=== PATIENT | female | born 1970 | race Caucasian/White ===

== ENCOUNTER 2018-11-19 14:39 | Emergency (ER) | payer BC, OTHER ==
[~2018-11-19] VITALS: Ht 172.7 cm; Wt 60.3 kg
--- NOTE | 2018-11-19 14:47 | NUR ---
PT BIBRA FROM A NAIL SALON S/P SYNCOPAL EPISODE. PER REPORT, PT WAS HYPOTENSIVE. PT IS AWAKE VERBALLY RESPONSIVE W/ GOOD BLOOD SUGAR. PLACED ON MONITOR. VSS. AWAITING MD DEVRIES.
--- NOTE | 2018-11-19 14:54 | NUR ---
ARELI LUZ AT BEDSIDE FOR EVAL.
--- NOTE | 2018-11-19 15:05 | NUR ---
STUDENT SERVICES COUNSELOR AT BEDSIDE FOR BLOOD DRAW.
[2018-11-19 15:09] LABS: BASOPHILS # (AUTO) 0.1 /CMM (0.0-0.2); BASOPHILS % (AUTO) 1.1 % (0.0-2.0); EOSINOPHILS % (AUTO) 4.4 % (0.0-6.0); HEMATOCRIT 38 % (33-45); HEMOGLOBIN 13.1 g/dL (11.5-14.8); LYMPHOCYTES # (AUTO) 1.7 /CMM (0.8-4.8); LYMPHOCYTES % (AUTO) 33.1 % (20.0-44.0); MEAN CORPUSCULAR HGB CONC 34 g/dl (31.0-36.0); MEAN CORPUSCULAR VOLUME 99 fL (82-100); MONOCYTES # (AUTO) 0.3 /CMM (0.1-1.30); MONOCYTES % (AUTO) 6.4 % (2.0-12.0); NEUTROPHILS # (AUTO) 2.8 /CMM (1.8-8.9); PLATELET COUNT (AUTO) 181 /CMM (150-450); RED BLOOD CELL COUNT(AUTO) 3.88 MIL/uL (4.0-5.2); WHITE BLOOD COUNT (AUTO) 5.2 K/uL (4.3-11.0)
[2018-11-19 15:28] LABS: ALBUMIN 3.2 g/dL (3.4-5.0); BILIRUBIN,DIRECT 0.2 mg/dL (0.0-0.2); BILIRUBIN,TOTAL 0.8 mg/dL (0.2-1.0); CALCIUM, SERUM 8.4 mg/dL (8.5-10.1); CREATININE 0.7 mg/dL (0.6-1.3); POTASSIUM 3.8 mmol/L (3.5-5.1); TOTAL PROTEIN, SERUM 6.1 g/dL (6.4-8.2)
[2018-11-19] MEDS ORDERED: MONT10TA22 PO (15:39)
[2018-11-19] MEDS ORDERED: ESTR1PAT23 TD (15:39)
[2018-11-19] MEDS ORDERED: MELO-107 PO (15:39)
[2018-11-19] MEDS ORDERED: AZIT250T13 PO (15:39)
[2018-11-19] MEDS ORDERED: FLUT16SP16 BNOSTRILS (15:39)
[2018-11-19] MEDS ORDERED: PROG100C15 PO (15:39)
[2018-11-19] MEDS ORDERED: CYCL30DR EACHEYE (15:39)
[2018-11-19] MEDS ORDERED: SPIR50TA PO (15:39)
--- NOTE | 2018-11-19 17:01 | NUR ---
Patient discharged to home in stable condition. Written and verbal after care instructions given. Patient verbalizes understanding of instruction.IV removed. Catheter intact and site benign. Pressure and 4x4 applied to site. No bleeding noted.
[2018-11-19 17:02] VITALS: BP 115/62
== END 2018-11-19 17:02 | disposition home or self-care (01) ==
LOC: ER 14:43
DX: R55 Syncope and collapse (principal); Z88.8 Allergy status to other drugs, medicaments and biological substances; Z79.899 Other long term (current) drug therapy
CPT/HCPCS: 36415; 71045-TC; 80048-TC; 80076-TC; 84484-TC; 85025-TC